=== PATIENT | male | born 1950 | race Caucasian/White ===

== ENCOUNTER 2016-05-28 05:39 | Day surgery (SDC) | payer MEDICARE, OTHER ==
[~2016-05-28] VITALS: Ht 175.3 cm; Wt 84.0 kg
[~2016-05-28 05:39] MED LIST: ASPI-973 PO; Lactated Ringer's 1,000 ML IV ONE
[2016-05-28] MEDS ORDERED: CeFAZolin Inj 2 GM in IV Premix 1 EACH IV ONE (06:00)
[2016-05-28 06:02] VITALS: BP 137/88; PULSE 58; RESP 17; O2SAT 95
[2016-05-28] MEDS ORDERED: Lactated Ringer's 1,000 ML IV ONE (06:17)
--- NOTE | 2016-05-28 07:15 | PCM.HPANE ---
Patient Data Surgeon Admitting Provider: Attending Provider:Zakia Kamara MD Primary Care Physician:Erick Lane MD Other Provider:Patti Valverdeingham Anesthesia Reason for Visit Right Inguinal Hernia Ht/WT & BMI Height (Feet): 5 Height (Inches): 9.00 Weight (Kilograms): 84 Body Mass Index 27.00 Allergies Coded Allergies: No Known Allergies (Unverified , 05/24/16) Past Anesthesia History Anesthesia History: Denies:: Abnormal Airway, Anesthesia Reactions (no prior surgery), Difficult Intubation Diabetes History Hx Diabetes?: No MRSA MRSA: No Medications Home Meds Incl Beta Loni: No Reported Medications Aspirin 81 Mg [id number] Mg PO DAILY Ref 0 05/24/16 History History of ENT Problems?: No HEENT History: Positive for:: Hearing Problem (some hearing loss) Denies:: Abnormal Airway Cataracts Difficult Intubation Dysphagia Glaucoma Sinus Problem TMJ Hx of Heart Problems?: No Cardiovascular History: Denies:: AICD Abdominal Aortic Aneurism Atrial Fibrillation Cardiac Surgery Congestive Heart Failure Coronary Artery Disease Edema Heart Murmur Hypertension Irregular Heartbeat Pacemaker Peripheral Vascular Hx of Respiratory Problem?: No Respiratory History: Denies:: Asthma COPD Emphysema Hemoptysis Oxygen Administration Pneumonia Pulmonary Embolism Tuberculosis Use of C-PAP Machine Hx Neurologic Problems?: No Neurological History: Denies:: CVA Dementia Dizziness Headaches Multiple Sclerosis Parkinson's Disease Seizures Hx of GI Problems?: Yes Gastrointestinal History: Denies:: Cirrhosis Diverticulitis (diverticulosis) Gall Bladder Disease Gastroesphageal Reflux Gastrointestinal Bleeding Heartburn Hepatitis Hiatal Hernia Liver Disease Rectal Bleeding Other GI Pertinent History: right inguinal hernia current admission problem Hx of Problems?: No Genitourinary History: Denies:: Kidney Stones Urinary Tract Infection Male Hx: Denies:: Prostate Problems Scrotal Mass Testicular Surgery Skin History: Denies:: History Skin Disorders? Pressure Ulcers Hx Musculoskeletal Problems?: No Musculoskeletal History: Denies:: Degenerative Joint Fibromyalgia Joint Replacement Musculoskeletal Trauma Myasthenia Gravis Osteoarthritis Rheumatoid Arthritis Hx of Psycho/Social Problems?: No Psycho Social History: Denies:: Anxiety Hx Depression Hx Surgeries?: No Hx Any Other Health Problems?: Yes Other History: Denies:: Cancer Thyroid Disease History Blood Transfusions: Positive for:: Accept Blood Products? Denies:: Blood Transfusions Hx Diabetes: No Hx Alcohol Use: YesAlcoholic Drinks Per Day: couple of drinks weeklyHx Substance Use: NoHave You Smoked inLast 12 mo: No Stop/Bang Treated for Sleep Apnea?: No Do You Have a CPAP Machine?: No S-Snoring: Do You Snore Loudly: No T-Tired: feel tired, fatigued: No O-Obsered: Observed not breath: No P-Blood Pressure: treated: No B- Body Mass Index > 35 kg/m2: No A- Age over 50: Yes N- Neck Large Circumference: No G- Gender Male: Yes YUDITH Total Score: 2 YUDITH Risk Assessment: Low Risk, <3 Yes Risk Assessment Category Category 1A: Patient has history of documented sleep apnea, and HAS NOT received any narcotic, sedative or anesthesia administration during this stay. Category 1B: Patient has history of documented sleep apnea, and HAS received any narcotic , sedative or anesthesia administration during this stay Category 2: Patient has SUSPECTED Obstructive Sleep Apnea, and HAS received any narcotic , sedative or anesthesia administration during this stay. Category 3: Patient has SUSPECTED Obstructive Sleep Apnea and HAS NOT received narcotic, sedative or anesthesia administration during this stay. Category 4: Outpatient in Procedural Areas with known sleep apnea or who screen positive for High Risk via the STOP/BANG questionnaire. Exam Exam Vital Signs Vital Signs Date Time Temp Pulse Resp B/P Pulse Ox O2 Delivery O2 Flow Rate FiO2 05/28/16 06:02 35.8 58 17 137/88 95 Room Air General Appearance: Oriented X3 HEENT/AIRWAY: MP 2 Lungs: Normal Air Movement Heart: Regular Rate/Rhythm Meds/Labs/Diagnostics Admission Meds Current Medications Lactated Ringer's (Lr) 1,000 ml @ ud STK-MED ONCE IV Last administered on 05/28t 06:17; Start 05/28/16 at 06:17; Stop 05/28/16 at 06:18; Status DC Plan Impression Patient chart reviewed, patient interviewed and anesthestic plan with risks, benefits, and alternatives discussed, and informed consent obtained. NPO Status: 05/27@1999, water @ 0100 ASA Physical Status: ASA1 Normal Healthy Anesthetic Plan: GA Bene/Risks/Altern/Consents: Yes HP Complete Prior to Induction: Yes Quinton Calixto MD May 28, 2016 07:15
[2016-05-28] MEDS ORDERED: MetoCLOpramide 5 mg/mL 2 mL Inj IVPUSH PRN (07:35)
[2016-05-28] MEDS ORDERED: Lactated Ringer's 1,000 ML IV SCH (07:35)
[2016-05-28] MEDS ORDERED: EPHEDrine Sulfate 50 mg/mL Inj IVPUSH PRN (07:35)
[2016-05-28] MEDS ORDERED: Labetalol 5 mg/mL 4 mL Inj IV PRN (07:35)
[2016-05-28] MEDS ORDERED: fentaNYL-PF 50 mCg/mL 2 mL Inj IVPUSH PRN (07:35)
[2016-05-28] MEDS ORDERED: HYDROmorphone 1 mg/mL Inj IVPUSH PRN (07:35)
[2016-05-28] MEDS ORDERED: Lactated Ringer's 500 ML IV PRN (07:35)
[2016-05-28] MEDS ORDERED: Phenylephrine 10,000 mCg/mL Inj IVPUSH PRN (07:35)
[2016-05-28] MEDS ORDERED: Dexamethasone 4 mg/mL Inj IVPUSH PRN (07:35)
[2016-05-28] MEDS ORDERED: Ondansetron 2 mg/mL 2 mL Inj IVPUSH PRN (07:35)
[2016-05-28] MEDS ORDERED: Bupivacaine-MPF 0.5% 30 mL Inj INFILTRATE ONE (07:45)
--- NOTE | 2016-05-28 09:32 | PCM.SURGPO ---
Immediate Operative Note Date of Surgery: May 28, 2016 Pre Operative Diagnosis Right inguinal hernia Post Operative Diagnosis Large indirect inguinal hernia Procedure Open right inguinal hernia repair with mesh Surgeon and Instrument Maker Surgeon: Zakia Kamara MD Assistants: Renco, Fed, PAC Findings Large indirect hernia Complications There were no periprocedural complications identified. Surgical Specimen Removed: No Specimen sent to Pathology: No Anesthetic Administered: GA Grafts, Implants: Grafts-See Implant Record Output, Estimated Blood Loss: 5 Blood Admin during surgery: No Attending Statement Nature Photographer listed was medically necessary for the successful completion of the case Zakia Kamara MD May 28, 2016 09:32
[2016-05-28 09:38] VITALS: BP 126/78; PULSE 65; RESP 14; O2SAT 99
[2016-05-28] MEDS ORDERED: OXYC5TAB72 PO (09:43)
[2016-05-28] MEDS ORDERED: POLY17PO6 PO (09:43)
[2016-05-28 09:46] VITALS: BP 136/97; PULSE 50; RESP 13; O2SAT 99
[2016-05-28 09:51] VITALS: BP 134/78; PULSE 60; RESP 15; O2SAT 99
[2016-05-28 10:03] VITALS: BP 138/76; PULSE 60; RESP 18; O2SAT 98
--- NOTE | 2016-05-28 10:11 | PCM.ANEP1 ---
Post Anesthesia Phase 1 PACU Phase 1 Assessment Date of Service: May 28, 2016 Vital Signs Vital Signs Date Time Temp Pulse Resp B/P Pulse Ox O2 Delivery O2 Flow Rate FiO2 05/28/16 10:03 60 18 138/76 98 Room Air 05/28/16 09:51 60 15 134/78 99 Simple Mask 10 05/28/16 09:46 50 13 136/97 99 Simple Mask 10 05/28/16 09:38 36.8 65 14 126/78 99 Simple Mask 10 05/28/16 06:02 35.8 58 17 137/88 95 Room Air Anesthetic Administered: GA Level of Alertness: Awake, talking Pain: No Nausea or Vomiting: No Oxygen Delivery: Room Air Lungs: Normal Air Movement Quinton Calixto MD May 28, 2016 10:11
--- NOTE | 2016-05-28 10:11 | PCM.ANEP2 ---
Post Anesthesia Evaluation ASA/CMS Post Anesthesia VS in Patient's Normal Range?: Yes Resp Stable; Airway Patent?: Yes CV Function & Hydration Stable: Yes Mental Status Recovered?: Yes Pain control Satisfactory?: Yes N/V Control Satisfactory?: Yes Quinton Calixto MD May 28, 2016 10:11
[2016-05-28 10:37] VITALS: BP 151/83; PULSE 64; RESP 14; O2SAT 100
--- NOTE | 2016-05-28 10:50 | OP ---
[address] [address] OPERATIVE REPORT PATIENT: JAMAAL PLEITEZ : 1950 MR#: [id number] ADMIT: 05/28/2016 JOB ID: [id number] DATE OF SURGERY: 05/28/2016 PREOPERATIVE DIAGNOSIS(ES): Right inguinal hernia. POSTOPERATIVE DIAGNOSIS(ES): Large right indirect inguinal hernia. SURGEON: Zakia Kamara MD CELLULOSE INSULATION HELPER: Jovany Calderon PA-C PROCEDURE PERFORMED: Open repair of right inguinal hernia with mesh. INDICATION: The patient is a 65-year-old gentleman who felt discomfort in his right groin two years ago when he was getting on a plane. After that, he intermittently noticed a bulge in his right groin. He has had Dr. Lane evaluate him a few times, but no obvious inguinal hernia was seen. When he last saw Dr. Lane in March, he requested an ultrasound and a surgical consultation. I saw him in consultation on April 25, 2016, and a large reducible indirect inguinal hernia. Recommended operative repair, and he is here to have that done. PROCEDURE DETAILS: He was placed in a supine position. Underwent smooth induction of general anesthesia. Abdomen was prepped and draped in the usual sterile fashion. Surgical time-out was undertaken using safety checklist, and all were in agreement. I began by making an incision along Carmita's lines at the pubic tubercle extending laterally on the right and divided the skin and subcutaneous tissue sharply as well as the external oblique aponeurosis and the external inguinal ring and opened the external oblique aponeurosis all the way to the ring. The contents of the inguinal canal were dissected free from the external oblique, identifying and excising the ilioinguinal nerve. I then encircled the cord circumferentially and placed the [place] drain. I then opened the cord by opening the external spermatic fascia and identified the indirect inguinal hernia sac. The sac appeared long, extending all the way across towards the scrotum, so I opened it and then dissected it circumferentially all the way down to the indirect inguinal ring. I then closed it with a pursestring suture and reduced it into the abdominal cavity. Also reduced the cord lipoma and then opened the distal sac widely. I then repaired the inguinal floor with an appropriately cut 3 x 6 Marlex mesh, anchoring it to the shelving edge of the inguinal ligament inferiorly, the pubic tubercle inferomedially, and the rectus abdominis medially. The new deep ring fashioned between the leaves of the mesh was found to be of adequate caliber without making it too big. After making sure the mesh lay well in the space without any folds, the external oblique aponeurosis was closed with running 2-0 PDS. Fabian's was reapproximated with 3-0 Vicryl. Skin was reapproximated with 4-0 Monocryl. Steri-Strips and sterile dressing were applied. The patient was recovered from anesthesia and taken to the recovery room in stable condition.
[2016-05-29] MEDS ORDERED: Polyethylene Glycol (PEG) 17 Gm Powder PO SCH (08:30)
== END 2016-05-28 23:59 | disposition home or self-care (01) ==
LOC: SAS 05:39
PROVIDERS: ATTEND Student in an Organized Health Care Education/Training Program
DX: K40.90 Unilateral inguinal hernia, without obstruction or gangrene, not specified as recurrent (principal); E78.5 Hyperlipidemia, unspecified; Z79.82 Long term (current) use of aspirin
CPT/HCPCS: 49505; C1781; J0690; J7120